=== PATIENT | female | born 2000 | race Caucasian/White ===

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

== ENCOUNTER 2019-04-03 03:27 | Emergency (ER) | payer SELFPAY ==
[2019-04-03 03:44] VITALS: BMI 24.7
--- NOTE | 2019-04-03 03:51 | PDOC ---
History of Present Illness - General Chief Complaint: Pain Stated Complaint: PAIN Time Seen by Provider: 04/03/19 03:47 - History of Present Illness Initial Comments: 04/03/19 05:00 Pt is a 18y/o F with no significant pmhx presenting with abdominal pain of 2 days duration. She describes the pain as throbbing non-radiating 8/10 pain on the right side of her stomach. She denies any exacerbating factors and motrin offers minimal relief The pain is constant and is not relapsing or remitting in nature. Patient is currenly on control and can't remember when she had her last period. she denies any fevers, chills,trauma, nausea, vomiting, diarrhea,hematuria, dysuria, urgency, frequency, vaginal bleeding/discharge or melena. 04/03/19 05:04 Past History - Past Medical History Allergies/Adverse Reactions: Allergies Allergy/AdvReac Type Severity Reaction Status Date / Time No Known Allergies Allergy Verified 04/03/19 03:38 Home Medications: Ambulatory Orders levoFLOXacin [Levaquin] 750 mg PO DAILY 7 Days #7 tab 04/03/19 COPD: No - Suicide/Smoking/Psychosocial Hx Smoking History: Never smoked Have you smoked in the past 12 months: No Information on smoking cessation initiated: No Hx Alcohol Use: No Drug/Substance Use Hx: No Review of Systems - Review of Systems Constitutional: No: Chills, Fever *Physical Exam - Vital Signs Last Vital Signs Temp Pulse Resp BP Pulse Ox 99.4 F 108 H 20 130/78 98 04/03/19 03:39 04/03/19 03:39 04/03/19 03:39 04/03/19 03:39 04/03/19 03:39 - Physical Exam General Appearance: Yes: Appropriately Dressed, Mild Distress HEENT: positive: Normal Voice. negative: Scleral Icterus (R), Scleral Icterus ( L), Rhinorrhea, Excessive drooling Respiratory/Chest: positive: Lungs Clear, Normal Breath Sounds. negative: Respiratory Distress, Accessory Muscle Use, Crackles, Rales, Wheezing Cardiovascular: positive: Regular Rhythm, Regular Rate, S1, S2. negative: JVD, Murmur Female Pelvic Exam: positive: normal external exam, other (whitish discharge in the vaginal canal. Cervical os could not be appreciated. no adnexal tenderness appreceiated.). negative: lesions, adnexal tenderness, vaginal bleeding Gastrointestinal/Abdominal: positive: Normal Bowel Sounds, Soft, Guarding, Tenderness, Other (tenderness and guarding present in the RLQ and RUQ. CVA tenderness present as well). negative: Organomegaly, Pulsatile Mass Integumentary: positive: Normal Color, Dry, Warm. negative: Cyanotic, Erythema Neurologic: positive: Fully Oriented, Alert, Normal Mood/Affect, Normal Response ED Treatment Course - LABORATORY CBC & Chemistry Diagram: 04/03/19 04:35 04/03/19 04:35 Medical Decision Making - Medical Decision Making 04/03/19 05:29 18y/o F with no significant pmhx presenting with 2 days of abdominal pain DDx: uti vs pyelonephritis vs billiary coliic vs appendicitis vs PID cbc, cmp, llipase, hcg, ua with urine culture Meds: Tylenol IV (1000mg), IV fluids 04/03/19 05:[address] abdomen and pelvis with contrast ordered. 04/03/19 06:12 elevated white count 15.1 Low Lipase 04/03/19 07:08 Ct shows pyelonephritis, discharged home with 750 mg po levofloxacin 1x daily for 7 days. *DC/Admit/Observation/Transfer Diagnosis at time of Disposition: Pyelonephritis - Discharge Dispostion Condition at time of disposition: Stable Decision to Admit order: No - Prescriptions Prescriptions: levoFLOXacin [Levaquin] 750 mg PO DAILY 7 Days #7 tab - Referrals - Patient Instructions Printed Discharge Instructions: DI for Kidney Infection Additional Instructions: You were seen today in the ER for a kidney infection. Antibiotics have been prescribed for you to take at home.Return to the ER if you develop fever, chills , worsening pain, burning when you pee, increased urination or blood in your urine. - Post Discharge Activity
[2019-04-03] MEDS ORDERED: ACETAMINOPHEN 1000 MG/100 ML VIAL (NON FORMULARY) IVPB ONE (04:20)
[2019-04-03] MEDS ORDERED: SODIUM CHLORIDE 1,000 ML IV STA (04:23)
--- NOTE | 2019-04-03 04:25 | PDOC ---
Attending Attestation - Resident Resident Name: Wojciech Busby - ED Attending Attestation I have performed the following: I have examined & evaluated the patient, The case was reviewed & discussed with the resident, I agree w/resident's findings & plan, Exceptions are as noted - HPI HPI: 04/03/19 07:10 18F no pmh here with 2 days of abdominal px localized to RUQ, R flank. No other complaints. - Physicial Exam PE: 04/03/19 07:11 Agree with exam as documented by resident - Medical Decision Making 04/03/19 07:11 Pyelonephritis on study young, stable, otherwise healthy woman Outpatient trial abx for pyelo dc
[2019-04-03] MEDS ORDERED: ACETAMINOPHEN INJECTION 100 ML IVPB ONE (04:26)
[2019-04-03 05:18] LABS: ALBUMIN 3.6 g/dl (3.4-5.0); BILIRUBIN,TOTAL 0.4 mg/dL (0.2-1); BLOOD UREA NITROGEN 6.1 mg/dL (7-18); CALCIUM 8.3 mg/dL (8.5-10.1); CREATININE 0.6 mg/dL (0.55-1.3); POTASSIUM 3.6 mmol/L (3.5-5.1)
[2019-04-03 05:20] VITALS: BP 112/65; PULSE 88; TEMP 98.9
[2019-04-03 05:25] LABS: HCG,QUALITATIVE URINE Negative
[2019-04-03 05:33] LABS: BASO % 0.2 % (0-2.0); EOS % 0.2 % (0-4.5); HEMATOCRIT 39.1 % (32.4-45.2); HEMOGLOBIN 13.4 GM/dL (10.7-15.3); LYMPH % 5.9 % (8-40); MCH 30.8 pg (25.7-33.7); MCHC 34.2 g/dl (32.0-36.0); MEAN CELL VOLUME 89.9 fl (80-96); MEAN PLT VOLUME 8.7 fl (7.5-11.1); MONO % 9.3 % (3.8-10.2); NEUT % 84.4 % (42.8-82.8); PLATELET COUNT 221 K/MM3 (134-434); RBC 4.35 M/mm3 (3.60-5.2); RDW 13.7 % (11.6-15.6); WHITE BLOOD COUNT 15.1 K/mm3 (4.0-10.0)
[2019-04-03 06:08] LABS: EPI CELLS 2.7 /HPF (0-5/HPF); HYALINE CASTS 15 /lpf (0-8); PH,URINE 6.5 (5.0-8.0); URINE APPEARANCE CLOUDY; URINE BACTERIA 8805.2 /hpf (NEGATIVE); URINE BILIRUBIN NEGATIVE (NEGATIVE); URINE COLOR YELLOW; URINE GLUCOSE (UA) NEGATIVE (NEGATIVE); URINE KETONE 1+ (NEGATIVE); URINE LEUK ESTERASE 3+ (NEGATIVE); URINE NITRITE NEGATIVE (NEGATIVE); URINE PROTEIN TRACE (NEGATIVE); URINE RBC 5 /hpf (0-4); URINE WBC 433 /hpf (0-5)
== END 2019-04-03 07:15 | disposition home or self-care (01) ==
LOC: JER 03:27
PROC: 3E033NZ Introduction of Analgesics, Hypnotics, Sedatives into Peripheral Vein, Percutaneous Approach (ICD-10-PCS; principal; 2019-04-03)
PROC: 3E0337Z Introduction of Electrolytic and Water Balance Substance into Peripheral Vein, Percutaneous Approach (ICD-10-PCS; 2019-04-03)
DX: N12 Tubulo-interstitial nephritis, not specified as acute or chronic (principal)
CPT/HCPCS: 36415; 74177-TC; 80053; 81003; 83690; 84703; 85025; 87086; 87186; 99283-25; J0131; J7030

== ENCOUNTER 2020-12-19 15:44 | Emergency (ER) | payer OTHER ==
[2020-12-19 15:59] VITALS: BP 111/70; PULSE 82; TEMP 97.8; BMI 29.2
== END 2020-12-19 18:04 | disposition home or self-care (01) ==
LOC: JER 15:44
DX: L02.213 Cutaneous abscess of chest wall (principal)
CPT/HCPCS: 76604; 76642-TC-RT; 99284-25

== ENCOUNTER 2021-03-22 10:53 | Emergency (ER) | payer OTHER ==
[2021-03-22 10:57] VITALS: TEMP 97.8; BMI 28.7
[2021-03-22 13:27] LABS: PH,URINE 7.5 (5.0-8.0); URINE APPEARANCE CLOUDY; URINE BILIRUBIN NEGATIVE (NEGATIVE); URINE COLOR YELLOW; URINE GLUCOSE (UA) NEGATIVE (NEGATIVE); URINE KETONE NEGATIVE (NEGATIVE); URINE LEUK ESTERASE NEGATIVE (NEGATIVE); URINE NITRITE NEGATIVE (NEGATIVE); URINE PROTEIN NEGATIVE (NEGATIVE)
[2021-03-22 14:21] LABS: BASO % 1.2 % (0-2.0); HEMATOCRIT 40.7 % (32.4-45.2); HEMOGLOBIN 13.5 GM/dL (10.7-15.3); LYMPH % 17.4 % (8-40); MCHC 33.1 g/dl (32.0-36.0); MEAN CELL VOLUME 90.5 fl (80-96); MONO % 5.8 % (3.8-10.2); NEUT % 74.6 % (42.8-82.8); PLATELET COUNT 292 10^3/uL (134-434); RBC 4.49 M/mm3 (3.60-5.2); RDW 13.8 % (11.6-15.6); WHITE BLOOD COUNT 15.6 K/mm3 (4.0-10.0)
[2021-03-22 14:41] VITALS: BP 111/74; PULSE 74
== END 2021-03-22 15:30 | disposition home or self-care (01) ==
LOC: JER 10:53
DX: O26.891 Other specified pregnancy related conditions, first trimester (principal); R10.2 Pelvic and perineal pain; K59.00 Constipation, unspecified; Z3A.01 Less than 8 weeks gestation of pregnancy
CPT/HCPCS: 36415; 76830-TC; 81003; 84702; 85025; 86850; 86900; 86901; 87086; 99284-25

== ENCOUNTER 2021-11-12 02:50 | Inpatient (IN) | payer OTHER ==
[2021-11-12 05:19] LABS: METHADONE, UR NEGATIVE (NEGATIVE)
[2021-11-12 05:20] LABS: COCAINE, UR NEGATIVE (NEGATIVE); OPIATES, URI NEGATIVE (NEGATIVE); URINE BENZODIAZEPINES NEGATIVE (NEGATIVE)
[2021-11-12 05:21] LABS: INR 1.03 (0.83-1.09); PHENCYCLIDINE,URINE NEGATIVE (NEGATIVE); PROTHROMBIN TIME (PATIENT) 11.8 SEC (9.7-13.0); URINE BARBITURATES NEGATIVE (NEGATIVE)
[2021-11-12 05:24] LABS: ACTIVATED PTT 29.5 SECONDS (25.2-36.5)
[2021-11-12] MEDS ORDERED: DINOPROSTONE 10 MG VAGINAL SUPPOSITORY VG ONE (05:24)
[2021-11-12 05:29] LABS: RETICULOCYTES 2.18 % (0.5-1.5)
[2021-11-12 05:30] LABS: BASO % 0.5 % (0-2.0); EOS % 5.6 % (0-4.5); HEMATOCRIT 34.9 % (32.4-45.2); HEMOGLOBIN 11.3 GM/dL (10.7-15.3); LYMPH % 18.9 % (8-40); MCH 28.4 pg (25.7-33.7); MCHC 32.4 g/dl (32.0-36.0); MEAN CELL VOLUME 87.6 fl (80-96); MEAN PLT VOLUME 10.3 fl (7.5-11.1); PLATELET COUNT 247 10^3/uL (134-434); RBC 3.98 M/mm3 (3.60-5.2); RDW 14.8 % (11.6-15.6); WHITE BLOOD COUNT 12.1 K/mm3 (4.0-10.0)
[2021-11-12 05:31] LABS: CALCIUM 8.3 mg/dL (8.5-10.1)
[2021-11-12 05:32] LABS: BLOOD UREA NITROGEN 6.7 mg/dL (7-18)
[2021-11-12 05:33] LABS: GAMMA GLUTAMYL TRANSPEPTIDASE 10 U/L (5-85)
[2021-11-12 05:35] LABS: CREATININE 0.4 mg/dL (0.55-1.3); URIC ACID 3.1 mg/dL (2.6-7.2)
[2021-11-12 05:36] LABS: SGOT/AST 18 U/L (15-37); SGPT/ALT 13 U/L (13-61)
[2021-11-12 05:50] VITALS: BMI 33.6
[2021-11-12 05:57] LABS: EPI CELLS >36 /uL (0-25.1); HYALINE CASTS 2 /uL (0-3.1); URINE APPEARANCE CLEAR; URINE BACTERIA 1251 /uL (0-1359); URINE BILIRUBIN NEGATIVE (NEGATIVE); URINE COLOR YELLOW; URINE GLUCOSE (UA) NEGATIVE (NEGATIVE); URINE KETONE NEGATIVE (NEGATIVE); URINE LEUK ESTERASE NEGATIVE (NEGATIVE); URINE NITRITE NEGATIVE (NEGATIVE); URINE PROTEIN NEGATIVE (NEGATIVE); URINE RBC 4 /uL (0-23.9); URINE UROBILINOGEN 0.2 mg/dL (0.2-1.0)
[2021-11-12 06:00] LABS: URINE AMPHETAMINES NEGATIVE (NEGATIVE)
[2021-11-12] MEDS ORDERED: ONDANSETRON 4 MG/2 ML VIAL IVPB ONE (07:39)
[2021-11-12] MEDS: ELECTROLYTE-148 SOLN 1,000 ML IV SCH ×2 (07:56→23:00)
[2021-11-12 11:07] LABS: URINE WBC 68.1 /uL (0-25.8)
[2021-11-12] MEDS ORDERED: LABETALOL HCL 200 MG TABLET (FP) PO ONE (11:08)
[2021-11-12] MEDS ORDERED: LABETALOL HCL 200 MG TABLET (FP) ONE (11:14)
[2021-11-12] MEDS ORDERED: PROMETHAZINE HCL 25 MG/1 ML VIAL IVPB PRN (12:25)
[2021-11-12] MEDS ORDERED: AMPICILLIN SODIUM 2 GM VIAL ONE (13:13)
[2021-11-12] MEDS ORDERED: AMPICILLIN - 2 GM in SODIUM CHLORIDE 100 ML IVPB ONE (14:00)
[2021-11-12] MEDS ORDERED: AMPICILLIN SODIUM 1 GM VIAL ONE ×2 (15:55→21:20)
[2021-11-12] MEDS ORDERED: FENTANYL/BUPIVACAINE/NS/PF - PCEA - 50 ML DISP.SYRIN EP ONE ×2 (16:29→21:22)
[2021-11-12] MEDS ORDERED: BUPIVACAINE HCL/PF 0.25% (2.5MG/ML) 10 ML VIAL ONE ×2 (16:43→23:35)
[2021-11-12] MEDS ORDERED: NALOXONE HCL 0.4 MG/ML VIAL IVPUSH PRN (17:04)
[2021-11-12] MEDS ORDERED: FENTANYL/BUPIVACAINE/NS/PF - PCEA - 50 ML DISP.SYRIN EP SCH (17:15)
[2021-11-12] MEDS: AMPICILLIN - 1 GM in SODIUM CHLORIDE 100 ML IVPB SCH ×2 (17:41→21:30)
[2021-11-12] MEDS ORDERED: OXYTOCIN 30 UNITS in 0.9% NS 30 UNIT/500 ML INFUS.BAG IVPB SCH (21:30)
[2021-11-13] MEDS ORDERED: AMPICILLIN SODIUM 1 GM VIAL ONE (01:16)
[2021-11-13] MEDS: AMPICILLIN - 1 GM in SODIUM CHLORIDE 100 ML IVPB SCH (01:30)
[2021-11-13] MEDS ORDERED: FENTANYL/BUPIVACAINE/NS/PF - PCEA - 50 ML DISP.SYRIN EP ONE (01:39)
[2021-11-13] MEDS ORDERED: LIDOCAINE 1%/EPI 1:100000 (20 ML MULTI DOSE VIAL) ONE (02:10)
[2021-11-13] MEDS ORDERED: OXYTOCIN 20 UNITS in 0.9% NS 20 UNIT/1,000 ML INFUS.BAG IV ONE (02:32)
[2021-11-13] MEDS ORDERED: oxyCODONE HCL 5 MG TABLET PO PRN (05:36)
[2021-11-13] MEDS ORDERED: METHYLERGONOVINE MALEATE 0.2 MG/1 ML AMP IM PRN (05:36)
[2021-11-13] MEDS ORDERED: BENZOCAINE 20% 57 GM BOTTLE TP PRN (05:36)
[2021-11-13] MEDS ORDERED: BISACODYL 10 MG SUPP.RECT RC PRN (05:36)
[2021-11-13] MEDS ORDERED: WITCH HAZEL 50% (TUCKS) 40 PAD/JAR PAD TP PRN (05:36)
[2021-11-13] MEDS ORDERED: BENZOCAINE 28 GM HEMORRHOIDAL OINTMENT TP PRN (05:36)
[2021-11-13] MEDS ORDERED: ACETAMINOPHEN 325 MG TABLET (FP) PO PRN (05:36)
[2021-11-13 05:44] LABS: CORD BASE EXCESS -9.9 mmol/L (0-2); CORD HCO3 20.5 mmHg (20-29); CORD PCO2 64.4 mmHg (30-78); CORD pH 7.12 (7.14-7.44)
[2021-11-13] MEDS ORDERED: OXYTOCIN 20 UNITS in 0.9% NS 20 UNIT/1,000 ML INFUS.BAG IV SCH (05:45)
[2021-11-13 05:48] LABS: CORD BASE EXCESS -6.2 mmol/L (0-2); CORD HCO3 20.5 mmHg (20-29); CORD pH 7.277 (7.14-7.44)
[2021-11-13] MEDS: LABETALOL HCL 100 MG TABLET (FP) PO SCH ×2 (06:24→22:10)
[2021-11-13] MEDS: IBUPROFEN 600 MG TABLET (FP) PO PRN ×2 (06:25→15:18)
[2021-11-13] MEDS ORDERED: IBUPROFEN 600 MG TABLET (FP) PO ONE (06:28)
[2021-11-13] MEDS: PRENATAL VITAMINS W/ FOLIC ACID TABLET (FP) PO SCH (09:54)
[2021-11-13] MEDS: FERROUS SO4 325 MG TABLET (FP) PO SCH (09:54)
[2021-11-14] MEDS: IBUPROFEN 600 MG TABLET (FP) PO PRN ×2 (01:15→14:13)
[2021-11-14] MEDS ORDERED: diphenhydrAMINE HCL 25 MG CAPSULE (FP) PO PRN (07:48)
[2021-11-14 08:28] LABS: BASO % 0.2 % (0-2.0); HEMATOCRIT 28.3 % (32.4-45.2); HEMOGLOBIN 9.2 GM/dL (10.7-15.3); LYMPH % 14.5 % (8-40); MCH 28.5 pg (25.7-33.7); MCHC 32.7 g/dl (32.0-36.0); MEAN CELL VOLUME 87.2 fl (80-96); MEAN PLT VOLUME 9.1 fl (7.5-11.1); MONO % 6.3 % (3.8-10.2); PLATELET COUNT 215 10^3/uL (134-434); RBC 3.24 M/mm3 (3.60-5.2); RDW 14.9 % (11.6-15.6); WHITE BLOOD COUNT 13.2 K/mm3 (4.0-10.0)
[2021-11-14] MEDS: LABETALOL HCL 100 MG TABLET (FP) PO SCH ×3 (09:17→23:52)
[2021-11-14] MEDS: PRENATAL VITAMINS W/ FOLIC ACID TABLET (FP) PO SCH (10:03)
[2021-11-14] MEDS: FERROUS SO4 325 MG TABLET (FP) PO SCH (10:03)
[2021-11-14] MEDS ORDERED: SENNOSIDES/DOCUSATE COMBO (SENNA PLUS) TABLET (UD) PO PRN (22:00)
[2021-11-15] MEDS: IBUPROFEN 600 MG TABLET (FP) PO PRN (01:52)
[2021-11-15 08:44] VITALS: BP 138/89; PULSE 88; TEMP 98.1
[2021-11-15] MEDS: LABETALOL HCL 100 MG TABLET (FP) PO SCH (09:32)
[2021-11-15] MEDS: PRENATAL VITAMINS W/ FOLIC ACID TABLET (FP) PO SCH (09:32)
[2021-11-15] MEDS: FERROUS SO4 325 MG TABLET (FP) PO SCH (09:32)
== END 2021-11-15 10:50 | disposition home or self-care (01) | DRG 560 ==
LOC: JDEL 02:50 → JLDR 04:15 → J3W 11-13 07:50
PROVIDERS: ADMIT Obstetrics & Gynecology; ATTEND Obstetrics & Gynecology
PROC: 3E0P7VZ Introduction of Hormone into Female Reproductive, Via Natural or Artificial Opening (ICD-10-PCS; principal; 2021-11-12)
PROC: 10E0XZZ Delivery of Products of Conception, External Approach (ICD-10-PCS; 2021-11-13)
PROC: 3E033VJ Introduction of Other Hormone into Peripheral Vein, Percutaneous Approach (ICD-10-PCS; 2021-11-13)
PROC: 10907ZC Drainage of Amniotic Fluid, Therapeutic from Products of Conception, Via Natural or Artificial Opening (ICD-10-PCS; 2021-11-13)
PROC: 0W8NXZZ Division of Female Perineum, External Approach (ICD-10-PCS; 2021-11-13)
PROC: 0HQ9XZZ Repair Perineum Skin, External Approach (ICD-10-PCS; 2021-11-13)
DX: O16.4 Unspecified maternal hypertension, complicating childbirth (principal); O69.81X0 Labor and delivery complicated by cord around neck, without compression, not applicable or unspecified; O99.324 Drug use complicating childbirth; F12.10 Cannabis abuse, uncomplicated; O99.214 Obesity complicating childbirth; E66.9 Obesity, unspecified; O99.824 Streptococcus B carrier state complicating childbirth; B95.1 Streptococcus, group B, as the cause of diseases classified elsewhere; O70.0 First degree perineal laceration during delivery; Z3A.38 38 weeks gestation of pregnancy; Z37.0 Single live birth
CPT/HCPCS: 36415; 36600; 59409; 80048; 80307; 81003; 82570; 82803; 82977; 83010; 84156; 84450; 84460; 84550; 85025; 85032; 85045; 85610; 85730; 86780; 86850; 86900; 86901; C9803; U0003; U0005